=== PATIENT | female | born 1995 | race Caucasian/White ===

== ENCOUNTER → 2018-07-10 | Outpatient (CLI) | payer OTHER | LOC: M.ULTRA 15:44 | DX: N83.01 Follicular cyst of right ovary (principal); N93.8 Other specified abnormal uterine and vaginal bleeding ==

== ENCOUNTER → 2019-02-12 | Outpatient (CLI) | payer OTHER | LOC: M.ULTRA 02-10 09:00 | DX: E04.9 Nontoxic goiter, unspecified (principal); R79.89 Other specified abnormal findings of blood chemistry ==